=== PATIENT | female | born 1965 | race Caucasian/White ===

== ENCOUNTER 2018-09-23 12:22 | Emergency (ER) | payer SELFPAY ==
[~2018-09-23] VITALS: Ht 175.3 cm; Wt 113.4 kg
[2018-09-23] MEDS ORDERED: ORPHENADRINE CITRATE 30 MG/ML VIAL IM ONE (13:00)
[2018-09-23] MEDS ORDERED: DEXAMETHASONE SOD PHOS 10 MG/1 ML VIAL IM ONE (13:00)
[2018-09-23] MEDS ORDERED: KETOROLAC TROMETHAMINE 60 MG/2 ML VIAL IM ONE (13:00)
--- NOTE | 2018-09-23 14:24 | Diagnostic Imaging Report ---
Radiographs of the hips and pelvis - 5 views HISTORY: Pain COMPARISON: None available. FINDINGS: Bones: No acute displaced fracture. Osseous alignment is within normal limits. Joints: Scattered degenerative change. No osseous erosion. Pseudarthrosis on the left at the lumbosacral junction. Soft tissues: The soft tissues appear unremarkable. IMPRESSION: Scattered degenerative change. No osseous erosion. Pseudarthrosis on the left at the lumbosacral junction. Signed by: Dr. Rusty Cuevas M.D. on 09/23/2018 2:21 PM
--- NOTE | 2018-09-23 14:26 | Diagnostic Imaging Report ---
Radiographs of the lumbar spine - 5 views HISTORY: Pain COMPARISON: None available. FINDINGS: Bones: No acute displaced fracture. Mild rotatory curvature of the lumbar spine concave to the right centered at L3 could be positional. Joints: Scattered degenerative change. No osseous erosion. Pseudarthrosis on the left at the lumbosacral junction. No pars interarticularis defects. Soft tissues: The soft tissues appear unremarkable. IMPRESSION: Scattered degenerative change. No osseous erosion. Pseudarthrosis on the left at the lumbosacral junction. Signed by: Dr. Rusty Cuevas M.D. on 09/23/2018 2:23 PM
[2018-09-23] MEDS ORDERED: HYDROCODONE/APAP 10MG-325MG TAB PO ONE (15:00)
== END 2018-09-23 16:55 | disposition home or self-care (01) ==
LOC: ER 12:22
DX: M54.5 Low back pain (principal); S30.0XXA Contusion of lower back and pelvis, initial encounter; M25.552 Pain in left hip; M25.551 Pain in right hip; W11.XXXA Fall on and from ladder, initial encounter; Y92.008 Other place in unspecified non-institutional (private) residence as the place of occurrence of the external cause; Z98.84 Bariatric surgery status
CPT/HCPCS: 72110; 73521; 99283; J1100; J1885; J2360